=== PATIENT | female | born 1990 | race Caucasian/White ===

== ENCOUNTER 2020-11-04 09:13 | Emergency (ER) | payer OTHER ==
[2020-11-04 09:53] LABS: BASOPHIL 0.7 % (0-2); HCT 40.7 % (37.0-47.0); HGB 13.8 g/dl (12.5-16.0); LYMPHOCYTE 37.2 % (15-48); MCH 32.5 pg (25.0-31.0); MCHC 33.9 g/dL (32.0-36.0); MCV 95.8 fL (78.0-100.0); MONOCYTE 6.5 % (0-12); MPV 9.1 fL (6.0-9.5); NEUTROPHIL 52.3 % (41-80); NRBC 0; PLT 331 K/uL (150-400); RBC 4.25 M/uL (4.20-5.40); RDW 11.8 % (11.5-14.0); WBC 7.3 K/uL (4.0-10.5)
[2020-11-04 09:54] LABS: BILIRUBIN NEGATIVE (NEGATIVE); BLOOD NEGATIVE Ery/uL (NEGATIVE); CLARITY CLEAR (CLEAR); COLOR YELLOW (YELLOW); GLUCOSE (U) NORMAL (NORMAL); LEUKOCYTES NEGATIVE Leu/uL (NEGATIVE); NITRITE POSITIVE (NEGATIVE); PROTEIN NEGATIVE (NEGATIVE); SPECIFIC GRAVITY >=1.030 (1.001-1.030); UROBILINOGEN 0.2 mg/dL (0.2-1.0)
[2020-11-04 10:04] LABS: BACTERIA 4+; SQUAMOUS EPITHELIAL CELLS 20-50; URINARY WBC 20-50
[2020-11-04 10:05] LABS: CALCIUM OXALATE CRYSTALS TRACE
[2020-11-04 10:12] LABS: ALBUMIN 3.2 g/dL (3.4-5.0); BILIRUBIN - TOTAL 0.4 mg/dL (0.2-1.0); CREATININE 0.72 mg/dL (0.51-0.95); GLOBULIN (CALCULATION) 3.2 g/dL; POTASSIUM 3.6 mmol/L (3.5-5.1); TOTAL PROTEIN 6.4 g/dL (6.4-8.2)
[2020-11-04] MEDS ORDERED: NORCO 5-325 TA1 EACH PO (11:44)
[2020-11-04] MEDS ORDERED: ZOFRAN4 M1 PO (11:44)
[2020-11-04] MEDS ORDERED: BACTRIM DS TAB1 EACH PO (11:44)
== END 2020-11-04 12:05 | disposition home or self-care (01) ==
LOC: FER 09:13
PROVIDERS: Emergency Medicine
DX: N39.0 Urinary tract infection, site not specified (principal); F43.10 Post-traumatic stress disorder, unspecified; Z79.899 Other long term (current) drug therapy
CPT/HCPCS: 36415; 80053; 81001; 82150; 83690; 85025; J0696; J1170; J1885; J2405; J7030; Q9967

== ENCOUNTER 2021-03-02 12:48 | Emergency (ER) | payer OTHER ==
[~2021-03-02 12:48] MED LIST: BACTRIM DS TAB1 EACH PO; NORCO 5-325 TA1 EACH PO; ZOFRAN4 M1 PO
[2021-03-02 15:16] LABS: BILIRUBIN 1+ mg/dL (NEGATIVE); BLOOD NEGATIVE Ery/uL (NEGATIVE); COLOR YELLOW (YELLOW); GLUCOSE (U) NORMAL (NORMAL); LEUKOCYTES TRACE Leu/uL (NEGATIVE); NITRITE POSITIVE (NEGATIVE); PROTEIN TRACE (LOW) mg/dL (NEGATIVE); SPECIFIC GRAVITY >=1.030 (1.001-1.030); UROBILINOGEN 0.2 mg/dL (0.2-1.0)
[2021-03-02 15:19] LABS: CLARITY HAZY (CLEAR)
[2021-03-02 15:21] LABS: URINARY WBC TNTC
[2021-03-02 15:22] LABS: BACTERIA 2+; MUCOUS MODERATE
[2021-03-02] MEDS ORDERED: PYRIDIUM200 MG PO (15:45)
[2021-03-02] MEDS ORDERED: BACTRIM DS TAB1 EACH PO (15:45)
[2021-03-02] MEDS ORDERED: MEDROL 4MG DOSEP4 MG PO (15:45)
[2021-03-02] MEDS ORDERED: CYCLOBENZAPRINE10 MG PO (15:45)
[2021-03-03 21:06] LABS: CHLAMYDIA TRACHOMATIS, NAA Negative (Negative); NEISSERIA GONORRHOEAE, NAA Negative (Negative)
== END 2021-03-02 16:17 | disposition home or self-care (01) ==
LOC: FER 12:48
PROVIDERS: Nurse Practitioner Family
DX: N39.0 Urinary tract infection, site not specified (principal); M54.32 Sciatica, left side
CPT/HCPCS: 81001; 87076; 87088; 87186; 87491; 87591; J1100